=== PATIENT | female | born 1980 | race Caucasian/White ===

== ENCOUNTER 2021-06-27 09:44 | Emergency (ER) | payer OTHER ==
[~2021-06-27] VITALS: Ht 152.4 cm; Wt 61.2 kg
[2021-06-27 09:45] VITALS: BP_SYST 139
[2021-06-27] MEDS ORDERED: SULF1TAB48 PO (10:04)
[2021-06-27] MEDS ORDERED: PRED50TA PO (10:04)
[2021-06-27 10:10] VITALS: BP_SYST 139
== END 2021-06-27 10:10 | disposition home or self-care (01) ==
LOC: SED 09:44
DX: T78.3XXA Angioneurotic edema, initial encounter (principal); Z79.899 Other long term (current) drug therapy
CPT/HCPCS: 99283

== ENCOUNTER 2022-09-13 18:47 | Emergency (ER) | payer OTHER ==
[~2022-09-13] VITALS: Ht 152.4 cm; Wt 63.5 kg
[~2022-09-13 18:47] MED LIST: PRED50TA PO; SULF1TAB48 PO
[2022-09-13 19:10] VITALS: BP_SYST 143
[2022-09-13] MEDS ORDERED: IBUPROFEN 400 MG TABLET PO ONE (19:45)
[2022-09-13] MEDS ORDERED: DEXAMETHASONE SOD PHOSPHATE 10 MG/ML VIAL IVP ONE (19:45)
[2022-09-13 20:45] LABS: BASOPHILS % (AUTO) 0.3 % (0.0-2.0); EOSINOPHILS % (AUTO) 0.5 % (0.0-4.0); HEMATOCRIT 37.5 % (36-48); HEMOGLOBIN 13.1 g/dL (12.0-16.0); LYMPHOCYTES # (AUTO) 1.1 K/uL (1.0-5.5); LYMPHOCYTES % (AUTO) 18.9 % (20.5-51.5); MEAN CORPUSCULAR HEMOGLOBIN 30 pg (27-31); MEAN CORPUSCULAR HGB CONC 35 % (32-36); MEAN CORPUSCULAR VOLUME 86 fL (79.0-98.0); MONOCYTES # (AUTO) 0.4 K/uL (0.0-1.0); NEUTROPHILS # (AUTO) 4.2 K/uL (1.8-7.7); NEUTROPHILS % (AUTO) 73.3 % (40.0-70.0); PLATELET COUNT (AUTO) 246 K/uL (130-430); RED BLOOD CELL COUNT(AUTO) 4.39 MIL/uL (4.2-6.2); RED CELL DISTRIBUTION WIDTH 12.4 % (9.0-15.0); WHITE BLOOD COUNT (AUTO) 5.7 K/uL (4.8-10.8)
[2022-09-13 20:56] LABS: ALBUMIN 3.3 g/dL (3.4-4.8); CREATININE 0.67 mg/dL (0.55-1.30); TOTAL BILIRUBIN 0.8 mg/dL (0.0-1.0)
[2022-09-13] MEDS ORDERED: PRED20TA PO (21:34)
[2022-09-13 22:14] VITALS: BP_SYST 137
== END 2022-09-13 22:14 | disposition home or self-care (01) ==
LOC: SED 18:47
DX: S04.51XA Injury of facial nerve, right side, initial encounter (principal); R51.9 Headache, unspecified; R09.81 Nasal congestion; Z88.8 Allergy status to other drugs, medicaments and biological substances; X58.XXXA Exposure to other specified factors, initial encounter; Y93.89 Activity, other specified; Y92.89 Other specified places as the place of occurrence of the external cause; Y99.8 Other external cause status
CPT/HCPCS: 99283; 96374; 80053; 85025; 36415; J1100